=== PATIENT | male | born 1980 | race Caucasian/White ===

== ENCOUNTER 2022-07-28 04:19 | Emergency (ER) | payer MEDICAID ==
[~2022-07-28] VITALS: Ht 177.8 cm; Wt 73.0 kg
[2022-07-28 05:24] VITALS: BP 132/88
[2022-07-28] MEDS ORDERED: GABA-530 PO (10:29)
[2022-07-28] MEDS ORDERED: LORA-269 PO (10:29)
[2022-07-28] MEDS ORDERED: ONDA4TAB12 PO (10:29)
== END 2022-07-28 05:30 | disposition home or self-care (01) ==
LOC: ER 04:21
DX: Z13.89 Encounter for screening for other disorder (principal); F10.10 Alcohol abuse, uncomplicated; F17.200 Nicotine dependence, unspecified, uncomplicated; Z72.89 Other problems related to lifestyle; Z79.899 Other long term (current) drug therapy; Y90.9 Presence of alcohol in blood, level not specified
CPT/HCPCS: 99281

== ENCOUNTER 2022-07-28 09:26 | Emergency (ER) | payer MEDICAID ==
[~2022-07-28] VITALS: Ht 182.9 cm; Wt 72.0 kg
[2022-07-28 10:08] VITALS: BP 137/88
[2022-07-28] MEDS ORDERED: GABA-530 PO (10:29)
[2022-07-28] MEDS ORDERED: LORA-269 PO (10:29)
[2022-07-28] MEDS ORDERED: ONDA4TAB12 PO (10:29)
== END 2022-07-28 10:45 | disposition home or self-care (01) ==
LOC: ER 09:27
DX: F10.20 Alcohol dependence, uncomplicated (principal); F17.200 Nicotine dependence, unspecified, uncomplicated; F12.90 Cannabis use, unspecified, uncomplicated; Z72.89 Other problems related to lifestyle; Z79.899 Other long term (current) drug therapy; Y90.9 Presence of alcohol in blood, level not specified
CPT/HCPCS: 99283